=== PATIENT | male | born 1960 | race Caucasian/White ===

== ENCOUNTER 2016-09-19 11:38 | Emergency (ER) | payer OTHER ==
[~2016-09-19] VITALS: Ht 188 cm; Wt 92.7 kg
[~2016-09-19 11:38] MED LIST: CEPH500C3 PO; SULF1TAB47 PO; Z.0.NO CURRENT MEDS
[2016-09-19 11:41] VITALS: BP 173/129; PULSE 102; RESP 16; TEMP 97.8; O2SAT 98
[2016-09-19] MEDS ORDERED: KETOROLAC TROMETHAMINE 30 MG/ML (IVP) VIAL IV PUSH ONE (12:00)
[2016-09-19] MEDS ORDERED: PROCHLORPERAZINE INJ 10 MG/2 ML VIAL IVS ONE (12:00)
[2016-09-19] MEDS ORDERED: amLODIPine BESYLATE 5 MG TAB PO ONE (12:00)
[2016-09-19] MEDS ORDERED: diphenhydrAMINE HCL 50 MG/ML VIAL IV PUSH ONE (12:00)
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
[2016-09-19 12:05] VITALS: BP 197/122
[2016-09-19 12:32] LABS: POTASSIUM 3.9 MEQ/L (3.5-5.1)
[2016-09-19 12:35] LABS: BICARBONATE 29.4 MEQ/L (21.0-32.0)
[2016-09-19 12:45] VITALS: BP 154/101; PULSE 76; RESP 18; O2SAT 97
[2016-09-19] MEDS ORDERED: AMLO5TAB2 PO (12:51)
[2016-10-19] MEDS ORDERED: CLON.1 PO (11:05)
[2016-10-19] MEDS ORDERED: LISI40TA PO (11:11)
[2016-10-19] MEDS ORDERED: AMLO10TA2 PO (11:11)
[2016-10-19] MEDS ORDERED: GABA300C5 PO (11:14)
[2016-11-18] MEDS ORDERED: LIPI10TA PO ×2 (10:34→10:39)
[2016-11-18] MEDS ORDERED: ROBA750T PO ×2 (10:34→10:39)
[2016-11-18] MEDS ORDERED: MAXA5TAB2 PO ×2 (10:34→10:39)
[2016-11-18] MEDS ORDERED: IBUP800T23 PO (10:34)
[2016-11-18] MEDS ORDERED: GABA600T PO ×2 (10:34→10:39)
[2016-11-20] MEDS ORDERED: SUMA25TA2 PO (12:34)
== END 2016-09-19 13:00 | disposition home or self-care (01) ==
LOC: PHED 11:38
DX: I10 Essential (primary) hypertension (principal); R51 Headache; E78.00 Pure hypercholesterolemia, unspecified; F17.210 Nicotine dependence, cigarettes, uncomplicated
CPT/HCPCS: 80048; 96374; 96375; 99284; J0780; J1200; J1885

== ENCOUNTER → 2016-11-02 | Outpatient (CLI) | payer OTHER ==
[~2016-11-02] MED LIST changes: +AMLO10TA2 PO; +AMLO5TAB2 PO; -CEPH500C3 PO; +GABA300C5 PO; +GABA600T PO; +IBUP800T23 PO; +LIPI10TA PO; +LISI40TA PO; +MAXA5TAB2 PO; +ROBA750T PO; -SULF1TAB47 PO; +SUMA25TA2 PO; -Z.0.NO CURRENT MEDS
[2016-11-02 08:52] LABS: AUTOMATED NEUTROPHIL # 5.3 TH/MM3 (1.8-7.7); BASOPHIL # 0.1 TH/MM3 (0-0.2); BASOPHIL % 0.7 % (0.0-2.0); EOSINOPHIL # 0.3 TH/MM3 (0-0.4); EOSINOPHIL % 3.6 % (0.0-4.0); HEMATOCRIT 43.7 % (39.0-51.0); HEMO FLAGS DIFF FINAL; LYMPH % 26.1 % (9.0-44.0); LYMPHOCYTE # 2.2 TH/MM3 (1.0-4.8); MEAN CELL VOLUME 95.4 FL (80.0-100.0); MEAN CORPUSCULAR HEMOGLOBIN 32.4 PG (27.0-34.0); MONO % 7.2 % (0.0-8.0); NEUT % 62.4 % (16.0-70.0); PLATELET COUNT 231 TH/MM3 (150-450); RED BLOOD COUNT 4.58 MIL/MM3 (4.50-5.90); RED CELL DISTRIBUTION WIDTH 13.5 % (11.6-17.2); WHITE BLOOD COUNT 8.5 TH/MM3 (4.0-11.0)
[2016-11-02 09:36] LABS: ALKALINE PHOSPHATASE 80 U/L (45-117); ALT (GPT) 24 U/L (12-78); ANION GAP 7 MEQ/L (5-15); AST (GOT) 13 U/L (15-37); BICARBONATE 26.3 MEQ/L (21.0-32.0); BLOOD UREA NITROGEN 11 MG/DL (7-18); CHLORIDE 107 MEQ/L (98-107); GLOMERULAR FILTRATION RATE 75 ML/MIN (>89); GLUCOSE,FASTING 91 MG/DL (74-99); HDL CHOLESTEROL 30.5 MG/DL (40.0-60.0); LDL CHOLESTEROL 128 MG/DL (0-99); POTASSIUM 4.2 MEQ/L (3.5-5.1); SODIUM (NA) 140 MEQ/L (136-145); TOTAL BILIRUBIN ADULT 0.7 MG/DL (0.2-1.0)
== END ==
LOC: CLAB 08:23
PROVIDERS: ATTEND Family Medicine
DX: I10 Essential (primary) hypertension (principal); M54.2 Cervicalgia; G62.9 Polyneuropathy, unspecified; M19.90 Unspecified osteoarthritis, unspecified site
CPT/HCPCS: 36415; 80053; 80061; 84443; 85025

== ENCOUNTER 2017-11-01 17:34 | Observation (INO) | payer MEDICAID, OTHER ==
[~2017-11-01] VITALS: Ht 188 cm; Wt 94.8 kg
[~2017-11-01 17:34] MED LIST changes: -AMLO5TAB2 PO; -GABA300C5 PO; +IBUP1TAB7 PO; -IBUP800T23 PO; -MAXA5TAB2 PO
[2017-11-01 17:35] VITALS: BP 120/68; PULSE 92; RESP 18; TEMP 97.9; O2SAT 97
[2017-11-01] MEDS ORDERED: HYDR-3288 PO (17:47)
[2017-11-01 17:53] LABS: BASOPHIL # 0.3 TH/MM3 (0-0.2); BASOPHIL % 2.1 % (0.0-2.0); EOSINOPHIL # 0.3 TH/MM3 (0-0.4); EOSINOPHIL % 2.5 % (0.0-4.0); HEMATOCRIT 37.6 % (39.0-51.0); HEMOGLOBIN 12.9 GM/DL (13.0-17.0); LYMPH % 28.5 % (9.0-44.0); LYMPHOCYTE # 3.4 TH/MM3 (1.0-4.8); MEAN CELL VOLUME 93.7 FL (80.0-100.0); MEAN CORPUSCULAR HEMOGLOBIN 32.2 PG (27.0-34.0); MEAN CORPUSCULAR HGB CONC 34.4 % (32.0-36.0); MEAN PLATELET VOLUME 7.9 FL (7.0-11.0); MONO % 8.5 % (0.0-8.0); NEUT % 58.4 % (16.0-70.0); PLATELET COUNT 180 TH/MM3 (150-450); RED BLOOD COUNT 4.01 MIL/MM3 (4.50-5.90); RED CELL DISTRIBUTION WIDTH 12.4 % (11.6-17.2)
[2017-11-01 18:02] LABS: CHLORIDE 101 MEQ/L (98-107); SODIUM (NA) 135 MEQ/L (136-145)
[2017-11-01 18:04] LABS: BICARBONATE 23.2 MEQ/L (21.0-32.0); BLOOD UREA NITROGEN 18 MG/DL (7-18); CALCIUM 8.3 MG/DL (8.5-10.1); GLUCOSE,RANDOM 79 MG/DL (74-106)
[2017-11-01 18:05] LABS: INTERNATIONAL NORMALIZED RATIO 1.1 RATIO; PROTHROMBIN TIME - PATIENT 11.3 SEC (9.8-11.6)
--- NOTE | 2017-11-01 18:05 | RADRPT ---
EXAM DATE/TIME: 11/01/2017 17:45 [facility] COMPARISON: No previous studies available for comparison. INDICATIONS : Stroke alert. Aphasia. RADIATION DOSE: 58.54 CTDIvol (mGy) This report was called by Dr. Vogel to Dr. Montes at 1800 MEDICAL HISTORY : Non-responsive. SURGICAL HISTORY : Non-responsive. ENCOUNTER: Initial ACUITY: 1 day PAIN SCALE: Non-responsive LOCATION: cranial TECHNIQUE: Multiple contiguous axial images were obtained of the head. Using automated exposure control and adj ustment of the mA and/or kV according to patient size, radiation dose was kept as low as reasonably a chievable to obtain optimal diagnostic quality images. DICOM format image data is available electro nically for review and comparison. FINDINGS: CEREBRUM: The ventricles are normal for age. No evidence of midline shift, mass lesion, hemorrhage or acute in farction. No extra-axial fluid collections are seen. POSTERIOR FOSSA: The cerebellum and brainstem are intact. The 4th ventricle is midline. The cerebellopontine angle i s unremarkable. EXTRACRANIAL: The visualized portion of the orbits is intact. SKULL: The calvaria is intact. No evidence of skull fracture. CONCLUSION: Negative exam. Sree Ridley MD on November 01, 2017 at 18:02 Board Certified Radiologist. This report was verified electronically.
[2017-11-01 18:08] LABS: GLOMERULAR FILTRATION RATE 69 ML/MIN (>89)
[2017-11-01 18:13] LABS: TROPONIN I LESS THAN 0.02 NG/ML (0.02-0.05)
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
--- NOTE | 2017-11-01 18:25 | RADRPT ---
EXAM DATE/TIME: 11/01/2017 17:45 [facility] COMPARISON: No previous studies available for comparison. INDICATIONS : Stroke alert. Aphasia. IV CONTRAST: 85 cc Visipaque (iodixanol) IV RADIATION DOSE: 42.21 CTDIvol (mGy) ; Combined studies MEDICAL HISTORY : Non-responsive. SURGICAL HISTORY : Non-responsive. ENCOUNTER: Initial ACUITY: 1 day PAIN SCALE: Non-responsive LOCATION: cranial TECHNIQUE: Volumetric scanning was performed using a multi-row detector CT scanner. The data was post processed with a variety of visualization algorithms including full volume maximum intensity projection, multi -planar sliding thin slab reformation, curved planar reformation, and surface rendering techniques. Using automated exposure control and adjustment of the mA and/or kV according to patient size, radiat ion dose was kept as low as reasonably achievable to obtain optimal diagnostic quality images. DICO M format image data is available electronically for review and comparison. FINDINGS: There is excellent visualization of the major intracranial arteries out to the second-order branch ve ssels. There is no evidence for aneurysm, vessel truncation or stenosis, and no evidence for vascula r malformation. CONCLUSION: 1. Intracranial vessels are all patent without large vessel embolic event. 2. Results were called to Dr. Webber at the time of this dictation Sree Ridley MD on November 01, 2017 at 18:19 Board Certified Radiologist. This report was verified electronically.
[2017-11-01] MEDS ORDERED: IODIXANOL 320 MG/ML 10 ML VIAL (for Rad CT) IVCONTRAST ONE (18:27)
--- NOTE | 2017-11-01 18:27 | RADRPT ---
EXAM DATE/TIME: 11/01/2017 18:10 [facility] COMPARISON: No previous studies available for comparison. INDICATIONS : Stroke alert. MEDICAL HISTORY : Unobtainable. SURGICAL HISTORY : Unobtainable. ENCOUNTER: Initial ACUITY: 1 day PAIN SCORE: Non-responsive. LOCATION: Bilateral chest FINDINGS: A single view of the chest demonstrates the lungs to be symmetrically aerated without evidence of mas s, infiltrate or effusion. The cardiomediastinal contours are unremarkable. Osseous structures are intact. CONCLUSION: No acute cardiopulmonary process. Sree Ridley MD on November 01, 2017 at 18:24 Board Certified Radiologist. This report was verified electronically.
--- NOTE | 2017-11-01 18:41 | RADRPT ---
EXAM DATE/TIME: 11/01/2017 17:45 [facility] COMPARISON: No previous studies available for comparison. INDICATIONS : Stroke alert. Aphasia. IV CONTRAST: 85 cc Visipaque (iodixanol) IV ; Cumulative dose for multiple exams. RADIATION DOSE: 42.21 CTDIvol (mGy) ; Combined studies MEDICAL HISTORY : Non-responsive. SURGICAL HISTORY : Non-responsive. ENCOUNTER: Initial ACUITY: 1 day PAIN SCALE: Non-responsive LOCATION: neck Elevated flow velocities and ICA/CCA ratios have been found to correlate with increased degrees of vessel stenosis, calculated as percentage of diameter relative to a normal segment of distal ICA/CCA. TECHNIQUE: Volumetric scanning was performed using a multirow detector CT scanner. The data was post processed with a variety of visualization algorithms including full-volume maximum intensity projection, multip lanar sliding thin-slab reformation, curved-planar reformation, and surface-rendering techniques. Us ing automated exposure control and adjustment of the mA and/or kV according to patient size, radiatio n dose was kept as low as reasonably achievable to obtain optimal diagnostic quality images. DICOM f ormat image data is available electronically for review and comparison. FINDINGS: AORTIC ARCH: There is a three-vessel origin of the great vessels from the aorta. No evidence of ostial narrowing. RIGHT CAROTID: The common carotid artery is intact. The carotid bulb has a normal configuration without ulceration o r narrowing. The internal carotid artery lumen is smooth without stenosis. The external carotid kumar ry is intact. LEFT CAROTID: The common carotid artery is intact. The carotid bulb has a normal configuration without ulceration or narrowing. The internal carotid artery lumen is smooth without stenosis. The external carotid ar cal is intact. VERTEBRALS: The vertebral arteries have a symmetric diameter. No stenotic lesions are seen. CONCLUSION: Cervical vessels are patent throughout. Sree Ridley MD on November 01, 2017 at 18:37 Board Certified Radiologist. This report was verified electronically.
[2017-11-01] MEDS ORDERED: ASPIRIN 325 MG TAB PO ONE (18:45)
[2017-11-01] MEDS ORDERED: SODIUM CHLOR 0.9% 1000 ML INJ 1,000 ML IV ONE (18:45)
[2017-11-01] MEDS ORDERED: LORazepam 1 MG TAB PO PRN (19:15)
[2017-11-01] MEDS ORDERED: LORazepam 2 MG/ML VIAL IV PUSH PRN ×4 (19:15)
[2017-11-01] MEDS ORDERED: DEXTROSE 50% IN WATER 50 ML VIAL(D50) IV PUSH PRN (19:15)
[2017-11-01] MEDS ORDERED: LORazepam 2 MG TAB PO PRN (19:15)
[2017-11-01] MEDS ORDERED: SODIUM CHLORIDE 0.9% FLUSH 10 ML FLUSH IV FLUSH PRN (19:15)
[2017-11-01] MEDS ORDERED: GLUCAGON 1 MG/ML VIAL OTHER PRN (19:15)
[2017-11-01] MEDS ORDERED: FLUMAZENIL 0.5 MG/5 ML VIAL IV PUSH PRN (19:15)
[2017-11-01 19:57] VITALS: BP 132/78; PULSE 78; RESP 16; O2SAT 98
[2017-11-01 20:28] VITALS: BP 114/68; PULSE 75; RESP 16; O2SAT 99
[2017-11-01 21:45] VITALS: PULSE 82
[2017-11-01] MEDS: HEPARIN SODIUM - SQ 10,000 UNITS/ML VIAL SQ SCH (22:34)
[2017-11-01] MEDS: SODIUM CHLORIDE 0.9% FLUSH 10 ML FLUSH IV FLUSH SCH (22:34)
[2017-11-01] MEDS: INSULIN ASPART SUPPLEMENTAL SCALE SQ SCH (22:36)
[2017-11-02] VITALS (7 sets, daily range): BP systolic 105–143; BP diastolic 67–84; PULSE 66–82; RESP 14–20; TEMP 96.6–98.7; O2SAT 91–97
[2017-11-02] MEDS: HEPARIN SODIUM - SQ 10,000 UNITS/ML VIAL SQ SCH ×3 (05:57→21:03)
[2017-11-02 06:12] LABS: AUTOMATED NEUTROPHIL # 5.1 TH/MM3 (1.8-7.7); BASOPHIL % 0.4 % (0.0-2.0); EOSINOPHIL # 0.3 TH/MM3 (0-0.4); EOSINOPHIL % 4.1 % (0.0-4.0); HEMATOCRIT 38.5 % (39.0-51.0); HEMOGLOBIN 13.2 GM/DL (13.0-17.0); LYMPH % 25.6 % (9.0-44.0); LYMPHOCYTE # 2.1 TH/MM3 (1.0-4.8); MEAN CELL VOLUME 94.3 FL (80.0-100.0); MEAN CORPUSCULAR HEMOGLOBIN 32.3 PG (27.0-34.0); MEAN CORPUSCULAR HGB CONC 34.3 % (32.0-36.0); MEAN PLATELET VOLUME 8.1 FL (7.0-11.0); MONO % 8.5 % (0.0-8.0); MONOCYTE # 0.7 TH/MM3 (0-0.9); NEUT % 61.4 % (16.0-70.0); PLATELET COUNT 169 TH/MM3 (150-450); RED BLOOD COUNT 4.08 MIL/MM3 (4.50-5.90); RED CELL DISTRIBUTION WIDTH 12.7 % (11.6-17.2); WHITE BLOOD COUNT 8.2 TH/MM3 (4.0-11.0)
[2017-11-02 06:22] LABS: CALCIUM 8.7 MG/DL (8.5-10.1)
[2017-11-02 06:23] LABS: BICARBONATE 26.5 MEQ/L (21.0-32.0)
[2017-11-02 06:26] LABS: CREATININE 0.92 MG/DL (0.60-1.30)
[2017-11-02] MEDS: INSULIN ASPART SUPPLEMENTAL SCALE SQ SCH (08:00)
[2017-11-02] MEDS: ASPIRIN 325 MG TAB PO SCH (08:13)
[2017-11-02] MEDS: FOLIC ACID 1 MG TAB PO SCH (08:14)
[2017-11-02] MEDS: THIAMINE HCL 100 MG TAB PO SCH (08:14)
[2017-11-02] MEDS: MULTIVITAMINS/MINERALS THERAPEUTIC TAB PO SCH (08:14)
[2017-11-02] MEDS: SODIUM CHLORIDE 0.9% FLUSH 10 ML FLUSH IV FLUSH SCH ×2 (08:15→21:03)
--- NOTE | 2017-11-02 09:31 | RADRPT ---
EXAM DATE/TIME: 11/02/2017 08:19 [facility] COMPARISON: No previous studies available for comparison. INDICATIONS : Transient ischemic attack. MEDICAL HISTORY : Hypercholesterolemia. Hypertension. Osteoarthritis. 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 ENCOUNTER: Initial ACUITY: 1 day PAIN SCORE: 0/10 LOCATION: Bilateral neck PEAK SYSTOLIC VELOCITIES (cm/sec): ICA/CCA RATIO: Right: 0.79 Left: 1.0 ICA: Right: 76 Left: 80 CCA: Right: 95 Left: 127 ECA: Right: 95 Left: 127 VERTEBRAL: Right: 49 antegrade Left: 46 antegrade Elevated flow velocities and ICA/CCA ratios have been found to correlate with increased degrees of vessel stenosis, calculated as percentage of diameter relative to a normal segment of distal ICA/CCA FINDINGS: RIGHT CAROTID: No significant stenosis is visualized. The waveforms are within normal limits. LEFT CAROTID: Minimal plaque is identified in the left carotid bifurcation. No significant stenosis is visualized. The waveforms are within normal limits. VERTEBRAL ARTERIES: Antegrade flow is seen in both vertebral arteries. MISCELLANEOUS: None. CONCLUSION: 1. Minimal plaque left carotid bifurcation. 2. No evidence of hemodynamically significant stenosis. 3. Antegrade flow both vertebral arteries. Cortes Garcias MD on November 02, 2017 at 9:27 Board Certified Radiologist. This report was verified electronically.
[2017-11-02 10:52] LABS: CHOLESTEROL/ HDL RATIO 4.42 RATIO; HDL CHOLESTEROL 29.4 MG/DL (40.0-60.0)
[2017-11-02 10:57] LABS: HEMOGLOBIN A1C 5.5 % (4.3-6.0)
--- NOTE | 2017-11-02 11:19 | HHI.HP ---
HPI Service [facility] Primary Care Physician Adalid Quach MD Admission Diagnosis TIA Diagnoses: Travel History International Travel<30 Days: No Contact w/Intl Traveler <30 Da: No Traveled to Known Affected Are: No History of Present Illness 57-year-old male with history of hypertension, migraines, hyperlipidemia, who presented with acute onset of slurred speech yesterday. This has subsequently resolved. Patient reports feeling otherwise okay. Denies any nausea, vomiting , chest pain, shortness of breath, lightheadedness, dizziness. He says he feels like he is back to normal. He denies any recent medication changes. Review of Systems Except as stated in HPI: all other systems reviewed are Neg Past Family Social History Past Medical History Hypertension Migraines Hyperlipidemia Chronic pain Past Surgical History Patient denies any past surgical history Reported Medications Reported Meds & Active Scripts Active Lisinopril 40 Mg Tab 40 Mg PO DAILY Amlodipine (Amlodipine Besylate) 10 Mg Tab 10 Mg PO DAILY Sumatriptan (Sumatriptan Succinate) 25 Mg Tab 25 Mg PO ONCE PRN If a satisfactory response has not been obtained at 2 hours, a second dose may be administered Lipitor (Atorvastatin Calcium) 10 Mg Tab 10 Mg PO HS Gabapentin 600 Mg Tab 600 Mg PO TID Reported [place] (Hydrocodone-Acetaminophen) 7.5-325 mg Tab 1 Tab PO Q6H Allergies: Coded Allergies: No Known Allergies (Verified Allergy, Unknown, 11/01/17) Family History Father with stroke and cancer. Mother secondary to motor vehicle accident Social History Patient smokes one half pack per day for the past 40 years. Patient reports occasional alcohol use about 2 drinks once per week. Denies any illicit drugs. Physical Exam Vital Signs Vital Signs Date Time Temp Pulse Resp B/P (MAP) Pulse Ox O2 Delivery O2 Flow Rate FiO2 11/02/17 09:50 72 11/02/17 09:21 97.7 72 14 120/77 (91) 97 11/02/17 04:00 96.6 77 20 143/84 (103) 91 11/02/17 00:00 97.5 82 20 116/70 (85) 94 4/16/18 21:45 82 11/01/17 20:28 75 16 114/68 (83) 99 Room Air 11/01/17 19:57 78 16 132/78 (96) 98 Room Air 11/01/17 17:35 97.9 92 18 120/68 (85) 97 Physical Exam GENERAL: This is a well-nourished, well-developed patient, in no apparent distress. Alert and oriented 3. SKIN: No rashes, ecchymoses or lesions. Cool and dry. HEAD: Atraumatic. Normocephalic. No temporal or scalp tenderness. EYES: Pupils equal round and reactive. Extraocular motions intact. No scleral icterus. No injection or drainage. ENT: Nose without bleeding, purulent drainage or septal hematoma. Throat without erythema, tonsillar hypertrophy or exudate. Uvula midline. Airway patent. NECK: Trachea midline. No JVD or lymphadenopathy. Supple, nontender, no meningeal signs. CARDIOVASCULAR: Regular rate and rhythm without murmurs, gallops, or rubs. RESPIRATORY: Clear to auscultation. Breath sounds equal bilaterally. No wheezes , rales, or rhonchi. GASTROINTESTINAL: Abdomen soft, non-tender, nondistended. No hepato-splenomegaly , or palpable masses. No guarding. MUSCULOSKELETAL: Extremities without clubbing, cyanosis, or edema. No joint tenderness, effusion, or edema noted. No calf tenderness. Negative Homans sign bilaterally. NEUROLOGICAL: Awake and alert. Cranial nerves II through XII intact. Motor and sensory grossly within normal limits. Five out of 5 muscle strength in all muscle groups. Normal speech. Laboratory Laboratory Tests Test 11/01/17 17:38 11/01/17 18:36 11/01/17 20:12 11/02/17 05:55 White Blood Count 12.0 8.2 Red Blood Count 4.01 4.08 Hemoglobin 12.9 13.2 Hematocrit 37.6 38.5 Mean Corpuscular Volume 93.7 94.3 Mean Corpuscular Hemoglobin 32.2 32.3 Mean Corpuscular Hemoglobin Concent 34.4 34.3 Red Cell Distribution Width 12.4 12.7 Platelet Count 180 169 Mean Platelet Volume 7.9 8.1 Neutrophils (%) (Auto) 58.4 61.4 Lymphocytes (%) (Auto) 28.5 25.6 Monocytes (%) (Auto) 8.5 8.5 Eosinophils (%) (Auto) 2.5 4.1 Basophils (%) (Auto) 2.1 0.4 Neutrophils # (Auto) 7.0 5.1 Lymphocytes # (Auto) 3.4 2.1 Monocytes # (Auto) 1.0 0.7 Eosinophils # (Auto) 0.3 0.3 Basophils # (Auto) 0.3 0.0 CBC Comment DIFF FINAL DIFF FINAL Differential Comment Prothrombin Time 11.3 Prothromb Time International Ratio 1.1 Activated Partial Thromboplast Time 25.7 Blood Urea Nitrogen 18 15 Creatinine 1.10 0.92 Random Glucose 79 83 Calcium Level 8.3 8.7 Sodium Level 135 141 Potassium Level 3.4 3.9 Chloride Level 101 107 Carbon Dioxide Level 23.2 26.5 Anion Gap 11 8 Estimat Glomerular Filtration Rate 69 84 Troponin I LESS THAN 0.02 Ethyl Alcohol Level 116 Triglycerides Level 201 Cholesterol Level 130 LDL Cholesterol 60 HDL Cholesterol 29.4 Cholesterol/HDL Ratio 4.42 Result Diagram: 11/02/17 0555 11/02/17 0555 Caprini VTE Risk Assessment Caprini VTE Risk Assessment: No/Low Risk (score <= 1) Caprini Risk Assessment Model Point Value = 1 Point Value = 2 Point Value = 3 Point Value = 5 Age 41-60 Minor surgery BMI > 25 kg/m2 Swollen legs Varicose veins or History of unexplained or recurrent spontaneous Oral contraceptives or hormone replacement Sepsis (< 1 month) Serious lung disease, including pneumonia (< 1 month) Abnormal pulmonary function Acute myocardial infarction Congestive heart failure (< 1 month) History of inflammatory bowel disease Medical patient at bed rest Age 61-74 Arthroscopic surgery Major open surgery (> 45 min) Laparoscopic surgery (> 45 min) Malignancy Confined to bed (> 72 hours) Immobilizing plaster cast Central venous access Age >= 75 History of VTE Family history of VTE Factor V Leiden Prothrombin [id number] Lupus anticoagulant Anticardiolipin antibodies Elevated serum homocysteine Heparin-induced thrombocytopenia Other congenital or acquired thrombophilia Stroke (< 1 month) Elective arthroplasty Hip, pelvis, or leg fracture Acute spinal cord injury (< 1 month) Prophylaxis Regimen Total Risk Factor Score Risk Level Prophylaxis Regimen 0-1 Low Early ambulation 2 Moderate Order ONE of the following: *Sequential Compression Device (SCD) *Heparin 5000 units SQ BID 3-4 Higher Order ONE of the following medications: *Heparin 5000 units SQ TID *Enoxaparin/Lovenox 40 mg SQ daily (WT < 150 kg, CrCl > 30 mL/min) *Enoxaparin/Lovenox 30 mg SQ daily (WT < 150 kg, CrCl > 10-29 mL/min) *Enoxaparin/Lovenox 30 mg SQ BID (WT < 150 kg, CrCl > 30 mL/min) AND/OR *Sequential Compression Device (SCD) 5 or more Highest Order ONE of the following medications: *Heparin 5000 units SQ TID (Preferred with Epidurals) *Enoxaparin/Lovenox 40 mg SQ daily (WT < 150 kg, CrCl > 30 mL/min) *Enoxaparin/Lovenox 30 mg SQ daily (WT < 150 kg, CrCl > 10-29 mL/min) *Enoxaparin/Lovenox 30 mg SQ BID (WT < 150 kg, CrCl > 30 mL/min) AND *Sequential Compression Device (SCD) Assessment and Plan Assessment and Plan //Suspected TIA = No recent medication changes or illicit drugs per patient, however patient was inebriated at the time of admission with alcohol level 116. = Drug screen pending -Start on daily aspirin. = CT head with no acute findings. Patient has returned to neurologic baseline. Echocardiogram and carotid Doppler pending. Neurology following. Appreciate assistance. //Alcohol intoxication on admission -Patient reports drinking rarely, says he only had a couple drinks. Will watch closely for withdrawal. //History of migraines. No migraines at this time. //Hyperlipidemia. Chronic. LDL here 60, HDL 29. Continue atorvastatin. //Chronic pain. Will avoid narcotics here. Restart gabapentin at slightly lower dose. //Chronic tobacco use. Cessation counseling provided. //Patient did have leukocytosis of 12 on admission. This has resolved without antibiotics. This is likely secondary to stress. No signs of infection. //Hypertension. Acceptable. Will hold off on blood pressure meds at this time. Continue to monitor. Discussed Condition With Patient, nurse Ari Nunez MD Nov 02, 2017 11:19
[2017-11-02] MEDS: GABAPENTIN 400 MG CAP PO SCH ×2 (12:14→17:31)
--- NOTE | 2017-11-02 15:38 | EKG ---
Date Performed: 11/01/2017 Time Performed: 18:14:15 PTAGE: 57 years EKG: Sinus rhythm POSSIBLE RIGHT VENTRICULAR CONDUCTION DELAY ABNORMAL ECG NO PREVIOUS TRACING DOCTOR: Jamie Cook Interpretating Date/Time 11/02/2017 15:29:04
--- NOTE | 2017-11-02 15:48 | RADRPT ---
EXAM DATE/TIME: 11/02/2017 14:34 [facility] COMPARISON: No previous studies available for comparison. INDICATIONS : Slurred speech. MEDICAL HISTORY : Hypertension. Hypercholesterolemia. SURGICAL HISTORY : Finger amputation. ENCOUNTER: Initial ACUITY: 2 day PAIN SCORE: 3/10 LOCATION: head TECHNIQUE: Multiplanar, multisequence MRI of the brain was performed without contrast. FINDINGS: CEREBRUM: Focal hyper signal intensity in the left parietal cortex. The ventricles are normal for age. No evid ence of midline shift, mass lesion, hemorrhage or acute infarction. No extraaxial fluid collections are seen. The pituitary gland and suprasellar cistern are normal in configuration. WHITE MATTER: No significant signal abnormalities are seen in the white matter. POSTERIOR FOSSA: The cerebellum and brainstem are intact. The 4th ventricle is midline. The cerebellopontine angle is unremarkable. The cerebellar tonsils are normal in position. DIFFUSION IMAGING: Focal punctate restricted diffusion seen in left parietal cortex acute infarction. EXTRACRANIAL: The visualized portions of the orbits are unremarkable. Fluid left maxillary sinus. CONCLUSION: 1. Lacunar infarcts left parietal lobe. 2. No midline shift or mass effect. 3. Left maxillary sinus disease. Satya Kelly MD on November 02, 2017 at 15:43 Board Certified Radiologist. This report was verified electronically.
--- NOTE | 2017-11-02 17:13 | RADRPT ---
EXAM DATE/TIME: 11/02/2017 14:34 [facility] COMPARISON: No previous studies available for comparison. INDICATIONS : TIA. Slurred speech. MEDICAL HISTORY : Hypertension. Hypercholesterolemia. SURGICAL HISTORY : Finger sx, nose sx. ENCOUNTER: Initial ACUITY: 2 day PAIN SCORE: 3/10 LOCATION: Bilateral cranial Please note a normal MRA of the brain does not entirely exclude the possibility of a small aneurysm, nor the possibility of distal intracranial vessel disease. TECHNIQUE: 3D time of flight MRA was performed. Source images, multiplanar STS MIP, and 3D volume MIP reconstru ctions were reviewed. FINDINGS: There is excellent visualization of the major intracranial arteries out to the second-order branch ve ssels. There is no evidence for aneurysm, vessel truncation or stenosis, and no evidence for vascula r malformation. CONCLUSION: Intracranial vessels are patent without aneurysmal disease. Sree Ridley MD on November 02, 2017 at 17:09 Board Certified Radiologist. This report was verified electronically.
--- NOTE | 2017-11-02 20:12 | MB ---
cc: Mercy Kennedy MD DATE: 11/02/2017 REASON FOR CONSULTATION: Stroke. HISTORY OF PRESENT ILLNESS: The patient is a 57-year-old man with history hypertension, migraines, hyperlipidemia, came in with acute onset of slurred speech yesterday that resolved. Currently sleeping, arousable, back to baseline, but there is some question of some slurring. I am not sure if he is just sleepy or if it is residual. PAST MEDICAL HISTORY: As stated. ACTIVE MEDICATIONS: 1. Lisinopril. 2. Amlodipine. 3. Sumatriptan p.r.n. 4. Lipitor. 5. Gabapentin. 6. Welcome. ALLERGIES: NONE REPORTED. FAMILY HISTORY: Stroke and cancer. SOCIAL HISTORY: Smoker, occasional alcohol. No illicit drugs. PHYSICAL EXAMINATION: VITAL SIGNS: Temperature 98.5, pulse 69, respiratory rate 14, blood pressure 110/67. NECK: Supple. No appreciable bruits. HEART: Regular. NEUROLOGIC: He is awake and alert. His speech has some questionable dysarthria. Face symmetrical. Tongue midline. Motor: I do not have any drift or leg lag. Cerebellar is normal. Toes withdraws. DTRs are 1+. Gait is withheld. LABORATORY DATA: Reviewed. His white count is 8.2, platelets 169,000, hemoglobin 13.2. Chemistries cholesterol 130, triglycerides 201, LDL 60, HDL 29.4. GFR 84. Tox screen positive for alcohol of 116. IMAGING: Brain MRI does show a lacunar infarct, left parietal lobe. Carotid ultrasound: Minimal plaque. MRA: [place] negative for any intracranial disease. I am not sure if echo was done, if not that should be pending. IMPRESSION: Small left lacunar parietal infarct. RECOMMENDATIONS: 1. Recommend starting him on aspirin daily. Continue his home medications. 2. He needs to stop smoking. Maintain normal blood pressures. Watch his cholesterol and diet, although his lipids seem to be okay. Have PT assess his speech. He needs to stop drinking. Give him some folic acid and thiamine, multivitamins and if his echo is unremarkable, he can be discharged on aspirin therapy. Mercy Kennedy MD DF/rt , 07:56 PM , 08:11 PM
[2017-11-03] VITALS: BP 116/67; PULSE 64; RESP 20; TEMP 97.6; O2SAT 96
[2017-11-03 03:08] VITALS: PULSE 62
[2017-11-03 04:00] VITALS: BP 115/72; PULSE 54; RESP 20; TEMP 97; O2SAT 97
[2017-11-03] MEDS ORDERED: ACETAMINOPHEN 325 MG TAB PO PRN (04:30)
[2017-11-03] MEDS: HEPARIN SODIUM - SQ 10,000 UNITS/ML VIAL SQ SCH ×2 (04:45→14:00)
[2017-11-03 08:00] VITALS: BP 113/68; PULSE 64; RESP 18; TEMP 97.2; O2SAT 96
[2017-11-03] MEDS: MULTIVITAMINS/MINERALS THERAPEUTIC TAB PO SCH (08:55)
[2017-11-03] MEDS: ASPIRIN 325 MG TAB PO SCH (08:55)
[2017-11-03] MEDS: GABAPENTIN 400 MG CAP PO SCH ×2 (08:55→13:00)
[2017-11-03] MEDS: THIAMINE HCL 100 MG TAB PO SCH (08:55)
[2017-11-03] MEDS: SODIUM CHLORIDE 0.9% FLUSH 10 ML FLUSH IV FLUSH SCH (08:55)
[2017-11-03] MEDS: FOLIC ACID 1 MG TAB PO SCH (08:55)
--- NOTE | 2017-11-03 09:28 | HHI.PR ---
Subjective Remarks Follow-up small left lacunar parietal stroke. Patient seen and examined, lying in bed comfortably in no apparent distress. Requesting to go home. States he feels much better. All symptoms have improved. Patient has been ambulating well. Eating well with no difficulty swallowing. Denies any fever, chills, cough, abdominal pain, nausea, vomiting, diarrhea or dysuria. Objective Vitals Vital Signs Date Time Temp Pulse Resp B/P (MAP) Pulse Ox O2 Delivery O2 Flow Rate FiO2 11/03/17 08:00 97.2 64 18 113/68 (83) 96 11/03/17 04:00 97.0 54 20 115/72 (86) 97 11/03/17 03:08 62 11/03/17 00:00 97.6 64 20 116/67 (83) 96 11/02/17 21:10 97.3 66 19 105/77 (86) 95 11/02/17 16:00 98.5 69 14 110/67 (81) 96 11/02/17 12:27 98.7 80 18 111/69 (83) 96 11/02/17 09:50 72 I/O 11/02/17 11/02/17 11/02/17 11/03/17 11/03/17 11/03/17 06:59 14:59 22:59 06:59 14:59 22:59 Intake Total 420 ml 580 ml 240 ml Output Total 850 ml Balance -430 ml 580 ml 240 ml Intake Oral 420 ml 580 ml 240 ml Output Urine Total 850 ml # Voids 4 2 # Bowel Movements 0 0 Result Diagram: 11/02/17 0555 11/02/17 0555 Imaging Last Impressions Head Magnetic Resonance Angiography 11/02/17 0000 Signed Impressions: Service Date/Time: Thursday, November 02, 2017 14:34 - CONCLUSION: Intracranial vessels are patent without aneurysmal disease. Sree Ridley MD Carotid Artery Ultrasound 11/02/17 0000 Signed Impressions: Service Date/Time: Thursday, November 02, 2017 08:19 - CONCLUSION: 1. Minimal plaque left carotid bifurcation. 2. No evidence of hemodynamically significant stenosis. 3. Antegrade flow both vertebral arteries. Cortes Garcias MD Brain MRI 11/02/17 0000 Signed Impressions: Service Date/Time: Thursday, November 02, 2017 14:34 - CONCLUSION: 1. Lacunar infarcts left parietal lobe. 2. No midline shift or mass effect. 3. Left maxillary sinus disease. Satya Kelly MD Neck CTA 11/01/17 1744 Signed Impressions: Service Date/Time: Wednesday, November 01, 2017 17:45 - CONCLUSION: Cervical vessels are patent throughout. Sree Ridley MD Head CTA 11/01/17 1744 Signed Impressions: Service Date/Time: Wednesday, November 01, 2017 17:45 - CONCLUSION: 1. Intracranial vessels are all patent without large vessel embolic event. 2. Results were called to Dr. Webber at the time of this dictation Sree Ridley MD Head CT 11/01/17 0000 Signed Impressions: Service Date/Time: Wednesday, November 01, 2017 17:45 - CONCLUSION: Negative exam. Sree Ridley MD Chest X-Ray 11/01/17 0000 Signed Impressions: Service Date/Time: Wednesday, November 01, 2017 18:10 - CONCLUSION: No acute cardiopulmonary process. Sree Ridley MD Objective Remarks GENERAL: Well-developed, well-nourished patient in NAD. SKIN: Warm and dry. No rash. HEAD: Normocephalic. Atraumatic. EYES: Pupils equal and round. No scleral icterus. No injection or drainage. ENT: No nasal bleeding or discharge. Mucous membranes pink and moist. NECK: Supple. Trachea midline. CARDIOVASCULAR: Regular rate and rhythm. S1, S2 noted. No murmur appreciated. RESPIRATORY: No accessory muscle use. Clear to auscultation. Breath sounds equal bilaterally. GASTROINTESTINAL: Abdomen soft, non-tender, nondistended. Normoactive bowel sounds x4. MUSCULOSKELETAL: No obvious deformities. Extremities without clubbing, cyanosis , or edema. NEUROLOGICAL: Awake and alert. No obvious cranial nerve deficits. Motor grossly within normal limits. 5/5 muscle strength in bilateral upper and lower extremities. Normal speech. PSYCHIATRIC: Appropriate mood and affect; insight and judgment normal. A/P Assessment and Plan Small left lacunar parietal CVA - No recent medication changes or illicit drugs per patient, however patient was inebriated at the time of admission with alcohol level 116. - Drug screen negative. - Start on daily aspirin. Continue upon discharge. - CT head with no acute findings. Patient has returned to neurologic baseline. Echocardiogram pending, follow and carotid Doppler showing minimal left carotid plaque. - Neurology following, okay to discharge on aspirin, have speech assess patient' s swallowing and speech ability as well as echo pending. Alcohol intoxication on admission - Patient reports drinking rarely, says he only had a couple drinks. Will watch closely for withdrawal. No signs of withdrawal overnight. - Patient encouraged alcohol cessation, patient states he will likely not stop drinking. History of migraines. No migraines at this time. Hyperlipidemia. Chronic. LDL here 60, HDL 29. Continue atorvastatin. Chronic pain. Will avoid narcotics here. Restart gabapentin at slightly lower dose. Chronic tobacco use. Cessation counseling provided. Patient states he will likely not stop smoking. Patient did have leukocytosis of 12 on admission. This has resolved without antibiotics. This is likely secondary to stress. No signs of infection. Hypertension. Acceptable. Will hold off on blood pressure meds at this time. Continue to monitor. Discharge Planning Will discharge today after echo done and read, and when speech therapy has seen patient. Mervat Hines Nov 03, 2017 09:28
--- NOTE | 2017-11-03 09:37 | HHI.DCPOC ---
Discharge Care Plan Diagnosis: (1) CVA (cerebral vascular accident) (2) Hypertension Goals to Promote Your Health * To prevent worsening of your condition and complications * To maintain your health at the optimal level Directions to Meet Your Goals Take your medications as prescribed Follow your dietary instruction Follow activity as directed Keep your appointments as scheduled Take your immunizations and boosters as scheduled If your symptoms worsen call your PCP, if no PCP go to Urgent Care Center or Emergency Room Smoking is Dangerous to Your Health. Avoid second hand smoke Call the 24-hour hour crisis hotline for domestic abuse at Mervat Hines Nov 03, 2017 09:37
[2017-11-03] MEDS ORDERED: FOLI1TAB6 PO (09:39)
[2017-11-03] MEDS ORDERED: THERM PO (09:39)
[2017-11-03] MEDS ORDERED: THIA100 PO (09:39)
[2017-11-03] MEDS ORDERED: ASA325 PO (09:39)
[2017-11-03 12:00] VITALS: BP 117/73; PULSE 70; RESP 18; TEMP 98.6; O2SAT 96
--- NOTE | 2017-11-03 15:07 | ECHRPT ---
Indication: CVA/TIA CONCLUSIONS The left ventricular systolic function is low normal with an estimated ejection fraction in the rang e of 50- 55%. Wall thickness is normal. Normal left ventricular size. There is mild tricuspid valve regurgitation. The estimated pulmonary arterial pressure is 29 mmHg. BP: / HR: Rhythm: Sinus MEASUREMENTS (Male / Female) Normal Values Technical Quality:Good 2D ECHO LV Diastolic Diameter PLAX 4.8 cm 4.2 - 5.9 / 3.9 - 5.3 cm LV Systolic Diameter PLAX 3.7 cm IVS Diastolic Thickness 1.3 cm 0.6 - 1.0 / 0.6 - 0.9 cm LVPW Diastolic Thickness 1.2 cm 0.6 - 1.0 / 0.6 - 0.9 cm LV Relative Wall Thickness 0.5 LVOT Diameter 2.3 cm M-MODE Aortic Root Diameter MM 3.2 cm LA Systolic Diameter MM 4.0 cm LA Ao Ratio MM 1.3 AV Cusp Separation MM 1.9 cm DOPPLER AV Peak Velocity 123.0 cm/s AV Peak Gradient 6.1 mmHg LVOT Peak Velocity 85.4 cm/s LVOT Peak Gradient 2.9 mmHg AV Area Cont Eq pk 2.9 cm MR Peak Velocity 178.0 cm/s MR Peak Gradient 12.7 mmHg Mitral E Point Velocity 58.2 cm/s Mitral A Point Velocity 47.9 cm/s Mitral E to A Ratio 1.2 LV E' Lateral Velocity 5.3 cm/s Mitral E to LV E' Lateral Ratio 11.1 LV E' Septal Velocity 6.4 cm/s Mitral E to LV E' Septal Ratio 9.1 TR Peak Velocity 216.0 cm/s TR Peak Gradient 18.7 mmHg Right Atrial Pressure 10.0 mmHg Pulmonary Artery Systolic Pressu 28.7 mmHg Right Ventricular Systolic Press 28.7 mmHg PV Peak Velocity 100.0 cm/s PV Peak Gradient 4.0 mmHg FINDINGS LEFT VENTRICLE The left ventricular systolic function is low normal with an estimated ejection fraction in the rang e of 50- 55%. Wall thickness is normal. Normal left ventricular size. RIGHT VENTRICLE Normal right ventricular size and systolic function. LEFT ATRIUM The left atrial size is normal. RIGHT ATRIUM The right atrial size is normal. ATRIAL SEPTUM Normal atrial septal thickness without atrial level shunting by limited color doppler interrogation. AORTA The aortic root and proximal ascending aorta are normal in size on limited imaging. MITRAL VALVE Structurally normal mitral valve. No mitral valve stenosis or regurgitation. AORTIC VALVE Trileaflet aortic valve. No aortic valve stenosis or regurgitation. TRICUSPID VALVE There is mild tricuspid valve regurgitation. The estimated pulmonary arterial pressure is 28.7 mmHg. PULMONARY VALVE No pulmonary valve regurgitation or stenosis. VESSELS The inferior vena cava is normal in size. PERICARDIUM No pericardial effusion. Peggy Watts MD, FACC (Electronically Signed) Final Date:03 November 2017 15:06
== END 2017-11-03 15:58 | disposition home or self-care (01) ==
LOC: PHED 17:34 → PHEDA 19:18 → INTOOBSV 19:18 → PH3A 21:12
PROVIDERS: ADMIT Hospitalist; ATTEND Hospitalist
DX: I63.9 Cerebral infarction, unspecified (principal); I10 Essential (primary) hypertension; E78.00 Pure hypercholesterolemia, unspecified; D72.829 Elevated white blood cell count, unspecified; M54.2 Cervicalgia; G89.29 Other chronic pain; G43.909 Migraine, unspecified, not intractable, without status migrainosus; R94.31 Abnormal electrocardiogram [ECG] [EKG]; Z79.899 Other long term (current) drug therapy; F17.210 Nicotine dependence, cigarettes, uncomplicated; Z82.3 Family history of stroke
CPT/HCPCS: 70450; 70496; 70498; 70544; 70551; 71045; 80048; 80061; 80307; 82948; 83036; 84484; 85025; 85610; 85730; 86850; 86900; 86901; 87641; 92610; 93005; 93306; 93880; 96360; 96372; 97162; 97165; 97530; 99291; G0378; G8987; G8988; G8989; G8996; G8997; G8998; J1644; J7030; Q9967

== ENCOUNTER 2017-12-03 17:47 | Emergency (ER) | END 2017-12-03 22:10 | disposition home or self-care (01) | DX: I82.431 Acute embolism and thrombosis of right popliteal vein (principal); F17.200 Nicotine dependence, unspecified, uncomplicated; I10 Essential (primary) hypertension ==